=== PATIENT | male | born 1985 | race Caucasian/White ===

== ENCOUNTER 2021-12-30 21:04 | Emergency (ER) | payer OTHER ==
[2021-12-30 22:36] LABS: RED BLOOD COUNT 4.81 M/UL (4.20-5.50); WHITE BLOOD COUNT 9.9 K/UL (4.5-11.0)
[2021-12-30 22:50] LABS: BUN/CREATININE RATIO 19 (0-10)
[2021-12-30] MEDS ORDERED: AMOX TR-K CLV1 EAC4 PO (23:50)
== END 2021-12-31 00:48 | disposition home or self-care (01) ==
LOC: ER1 21:04
PROVIDERS: Student in an Organized Health Care Education/Training Program
DX: K61.0 Anal abscess (principal); E11.9 Type 2 diabetes mellitus without complications
CPT/HCPCS: 72193; 80053; 83605; 85025; 87040; 96374; 96375; 99284; J2270; Q9967